=== PATIENT | male | born 1955 | race Two or more races ===

== ENCOUNTER 2024-11-27 09:10 | Outpatient (CLI) | payer OTHER ==
[2024-11-27 10:08] LABS: HEMATOCRIT 43.2 % (39.0-48.0); HEMOGLOBIN 14.6 g/dL (13-16.00); MEAN CELL VOLUME 84.1 fL (80.0-100.00); MEAN CORPUSCULAR HEMOGLOBIN 28.4 pg (27.00-32.0); MEAN CORPUSCULAR HGB CONC 33.7 g/dl (32.0-36.0); PLATELET COUNT 209 K/uL (150-450); RED BLOOD COUNT 5.14 M/uL (4.00-6.00)
[2024-11-27 10:14] LABS: PH,URINE 5.5 (5.0-8.0); URINE APPEARANCE Clear; URINE BILIRRUBIN Negative (NEGATIVE); URINE BLOOD Small; URINE COLOR Yellow; URINE GLUCOSE Negative (NEGATIVE); URINE KETONE Negative (NEGATIVE); URINE LEUKOCYTE Negative; URINE NITRATE Negative; URINE PROTEIN Negative (NEGATIVE); URINE UROBILINOGEN 0.2 E.U./dl
[2024-11-27 10:16] LABS: URINE RBC 54.4 uL (0.0-20.8)
[2024-11-27 10:29] LABS: INR 0.99; PARTIAL THROMBOPLASTIN TIME 28.2 SECONDS (22.0-34.0); PROTHROMBIN TIME 10.8 SECONDS (9.0-11.5)
[2024-11-27 10:33] LABS: URINE BACTERIA 3.6 uL (0.0-1933); URINE EPITHELIAL CELLS 0.7 uL (0.0-38.8); URINE WBC 1.1 uL (0.0-23.2)
[2024-11-27 11:05] LABS: ALBUMIN 4.1 gm/dL (3.4-5.0); BILIRUBIN TOTAL 0.64 mg/dL (0.3-1.2); CALCIUM 9.3 mg/dL (8.5-10.1); CREATININE SERUM 1.04 mg/dL (0.70-1.30); GFR 71.23; GLOBULINA 3.3 G/DL (2.4-3.5); TOTAL PROTEIN 7.4 gm/dL (6.4-8.2)
[2024-11-27 11:07] LABS: POTASSIUM 5.34 mEq/L (3.5-5.1)
[2024-11-27 11:15] LABS: COL EPI 87 SECONDS (82-175)
== END 2024-11-27 09:15 | disposition home or self-care (01) ==
LOC: RAD 09:10
PROVIDERS: ATTEND Orthopaedic Surgery
DX: Z76.89 Persons encountering health services in other specified circumstances (principal); D64.9 Anemia, unspecified; D68.8 Other specified coagulation defects; N39.0 Urinary tract infection, site not specified

== ENCOUNTER 2024-12-07 05:40 | Day surgery (SDC) | payer OTHER ==
[2024-12-02 14:33] VITALS: BP 118/70
[~2024-12-07] VITALS: Ht 182.9 cm; Wt 117.0 kg
[~2024-12-07 05:40] MED LIST: CYMBALTA60 MG PO; GRALISE600 MG PO; ROSUVASTATIN CAL5 MG PO; TOPROL XL25 M1 PO; WELLBUTRIN XL150 M1 PO; ZESTRIL10 M1 PO
[2024-12-07] MEDS ORDERED: CEFAZOLIN SODIUM 1,000 MG VIAL ONE (06:56)
[2024-12-07] MEDS ORDERED: BUPIVACAINE HCL/MPF 0.5% 30ML VIAL ONE (06:56)
[2024-12-07] MEDS ORDERED: SUGAMMADEX SODIUM 200 MG/2 ML VIAL IV ONE (08:56)
[2024-12-07] MEDS ORDERED: MORPHINE SULFATE 4 MG/ML VIAL IV ONE ×2 (09:40→10:10)
== END 2024-12-07 12:10 | disposition home or self-care (01) ==
LOC: CIR.AMB 05:40
PROVIDERS: ATTEND Orthopaedic Surgery
DX: M21.621 Bunionette of right foot (principal); I10 Essential (primary) hypertension; E78.5 Hyperlipidemia, unspecified; J44.9 Chronic obstructive pulmonary disease, unspecified; G47.30 Sleep apnea, unspecified
CPT/HCPCS: 28299; L8699

== ENCOUNTER 2025-01-04 12:11 | Outpatient (CLI) | payer OTHER | END 2025-01-04 12:17 | disposition home or self-care (01) | LOC: RAD 12:11 | PROVIDERS: ATTEND Orthopaedic Surgery | DX: M21.621 Bunionette of right foot (principal) ==

== ENCOUNTER 2025-02-03 14:58 | Outpatient (CLI) | payer OTHER | END 2025-02-03 15:01 | disposition home or self-care (01) | LOC: RAD 14:58 | PROVIDERS: ATTEND Orthopaedic Surgery | DX: M21.621 Bunionette of right foot (principal) ==

== ENCOUNTER 2025-02-17 08:13 | Outpatient (CLI) | payer OTHER | END 2025-02-17 08:15 | disposition home or self-care (01) | LOC: RAD 08:13 | PROVIDERS: ATTEND Internal Medicine | DX: I20.9 Angina pectoris, unspecified (principal); E04.9 Nontoxic goiter, unspecified ==

== ENCOUNTER 2025-05-13 10:18 | Outpatient (CLI) | payer OTHER | END 2025-05-13 10:22 | disposition home or self-care (01) | LOC: RAD 10:18 | PROVIDERS: ATTEND Orthopaedic Surgery | DX: M86.171 Other acute osteomyelitis, right ankle and foot (principal) ==

== ENCOUNTER → 2025-06-11 09:50 | Outpatient (CLI) | payer OTHER ==
[2025-06-11 10:55] LABS: BASO % 0.5 % (0.1-1.2); EOS # 0.25 (0.04-0.54); EOS % 3.1 % (0.7-7.0); LYMPH # 2.09 (1.18-3.74); LYMPH % 25.6 % (19.3-53.1); MEAN PLATELET VOLUME 9.80 fl (9.4-12.4); MONO # 0.57 (0.24-0.82); MONO % 7.0 % (4.7-12.5); NEUT # 5.18 (1.56-6.13); NEUT % 63.6 % (34.0-71.1); RED CELL DISTRIBUTION WIDTH 14.6 % (11.6-14.4)
[2025-06-11 11:01] LABS: ERYTHROCYTE SEDIMENTATION RATE 15 mm/hr (0-20)
[2025-06-11 11:48] LABS: ALT/SGPT 33.0 U/L (12-78); AST/SGOT 24.0 U/L (15-37); BILIRUBIN TOTAL 0.47 mg/dL (0.3-1.2); BUN CREA RATIO 18.0 (7.0-25.0); CHOL HDL RATIO 3.4 (0-5.0); CREATININE SERUM 0.92 mg/dL (0.70-1.30); GFR 82.06; GLOBULINA 3.2 G/DL (2.4-3.5); GLUCOSE FASTING 87.0 mg/dL (65-100); HDL 40.0 mg/dl (40-60); LDL 71.0 mg/dl (0-130); OSMOLALITY SERUM 284.0 MOSM/KG (275-295); PHOSPHOKINASE CREATININE 273.0 U/L (39-308); T4 FREE 0.76 NG/ML (0.76-1.46); TSH 1.53 uIU/mL (0.358-3.74); VLDL 24.0 (0-39)
[2025-06-11 11:53] LABS: GAMMA GLUTAMIL TRANSFERASE 29.0 U/L (15-85)
[2025-06-12 09:11] LABS: PROLACTIN 4.9 ng/mL (3.6-25.2)
== END | disposition home or self-care (01) ==
LOC: LAB 09:50
PROVIDERS: ATTEND Neuromusculoskeletal Medicine & OMM
DX: E78.00 Pure hypercholesterolemia, unspecified (principal); E78.1 Pure hyperglyceridemia; M62.9 Disorder of muscle, unspecified; G62.9 Polyneuropathy, unspecified; R20.2 Paresthesia of skin; E03.9 Hypothyroidism, unspecified; R73.9 Hyperglycemia, unspecified; R73.01 Impaired fasting glucose; E22.1 Hyperprolactinemia

== ENCOUNTER 2025-08-09 11:32 | Emergency (ER) | payer OTHER ==
[~2025-08-09] VITALS: Ht 167.6 cm; Wt 117.9 kg
[2025-08-09 12:59] VITALS: BP 130/80; O2SAT 96
[2025-08-09] MEDS ORDERED: BACLOFEN20 MG PO (13:04)
[2025-08-09 15:25] LABS: BASO % 0.5 % (0.1-1.2); EOS # 0.25 (0.04-0.54); EOS % 2.5 % (0.7-7.0); LYMPH # 2.66 (1.18-3.74); LYMPH % 26.6 % (19.3-53.1); MEAN PLATELET VOLUME 10.10 fl (9.4-12.4); MONO # 0.60 (0.24-0.82); MONO % 6.0 % (4.7-12.5); NEUT # 6.41 (1.56-6.13); NEUT % 64.2 % (34.0-71.1); RED CELL DISTRIBUTION WIDTH 14.3 % (11.6-14.4)
[2025-08-09 15:56] LABS: ALT/SGPT 45.0 U/L (12-78); AST/SGOT 31.0 U/L (15-37); BILIRUBIN TOTAL 0.42 mg/dL (0.3-1.2); BUN CREA RATIO 17.0 (7.0-25.0); CREATININE SERUM 0.98 mg/dL (0.70-1.30); GFR 76.06; GLOBULINA 3.5 G/DL (2.4-3.5); GLUCOSE FASTING 84.0 mg/dL (65-100); OSMOLALITY SERUM 280.0 MOSM/KG (275-295)
== END 2025-08-09 17:37 | disposition home or self-care (01) ==
LOC: ER 11:33
PROVIDERS: General Practice
DX: I25.118 Atherosclerotic heart disease of native coronary artery with other forms of angina pectoris (principal); R07.9 Chest pain, unspecified; I10 Essential (primary) hypertension; E78.00 Pure hypercholesterolemia, unspecified

== ENCOUNTER → 2025-08-24 10:04 | Outpatient (CLI) | payer OTHER ==
[~2025-08-24 10:04] MED LIST changes: +BACLOFEN20 MG PO
[2025-08-24 11:27] LABS: CREATININE SERUM 1.13 mg/dL (0.70-1.30)
== END | disposition home or self-care (01) ==
LOC: LAB 10:04
PROVIDERS: ATTEND Radiology Diagnostic Radiology
DX: I71.40 Abdominal aortic aneurysm, without rupture, unspecified (principal)

== ENCOUNTER 2025-08-26 10:37 | Outpatient (CLI) | payer OTHER | END 2025-08-26 10:45 | disposition home or self-care (01) | LOC: TOM 10:37 | PROVIDERS: ATTEND Specialist | DX: I71.40 Abdominal aortic aneurysm, without rupture, unspecified (principal) | CPT/HCPCS: 74175; Q9965 ==